=== PATIENT | female | born 1970 ===

== ENCOUNTER 2022-09-21 17:00 | Emergency (ER) | payer MEDICAID ==
[~2022-09-21] VITALS: Ht 154.9 cm; Wt 63.6 kg
[2022-09-21] MEDS ORDERED: ketorolac trometh inj. 60 MG/2 ML VIAL IM ONE (18:55)
[2022-09-21] MEDS ORDERED: orphenadrine citrate 60mg/2ml inj. IM ONE (18:55)
[2022-09-21] MEDS ORDERED: CYCL-1 PO (18:58)
[2022-09-21] MEDS ORDERED: IBUP-1986 PO (18:58)
[2022-09-21 19:07] VITALS: BP 88/50
== END 2022-09-21 19:25 | disposition home or self-care (01) ==
LOC: ER 17:01
DX: S29.012A Strain of muscle and tendon of back wall of thorax, initial encounter (principal); S39.012A Strain of muscle, fascia and tendon of lower back, initial encounter; X50.0XXA Overexertion from strenuous movement or load, initial encounter; Y93.89 Activity, other specified; Y92.89 Other specified places as the place of occurrence of the external cause; Y99.8 Other external cause status
CPT/HCPCS: 96372; 99284; J1885; J2360